=== PATIENT | male | born 1955 | race Caucasian/White ===

== ENCOUNTER 2021-06-04 10:11 | Day surgery (SDC) | payer MEDICARE ==
[2021-06-04] MEDS ORDERED: Lidocaine 1% PF 5 ML VIAL ONE (10:45)
[2021-06-04] MEDS ORDERED: Albumin 25% 100 ML ONE ×2 (10:45→10:58)
[2021-06-04 10:52] VITALS: TEMP 98.4
[2021-06-04 11:48] LABS: #Eosinphils 0.1 10x3/uL (0.0-0.5); #Monocytes 0.5 10x3/uL (0.0-1.1); #Neutrophils 4.4 10x3/uL (1.5-8.4); %Basophils 0.4 % (0.0-2.0); %Lymphocytes 30.7 % (18.0-47.0); %Monocytes 7.3 % (0.0-10.0); %Neutrophils 60.3 % (40.0-75.0); Hemoglobin 9.7 g/dL (13.5-17.5); Mean Corpuscular HGB CONC 34.5 g/dL (32.0-36.0); Mean Corpuscular Hemoglobin 32.1 pg (27.0-33.0); Mean Platelet Volume 12.5 fl (7.4-10.4); Platelet Count 138 10x3/uL (150-450); RBC Distribution Width 16.1 % (11.5-14.5); Red Blood Cell (RBC) Count 3.02 10x6/uL (4.32-5.72); White Blood Cell (WBC) Count 7.3 10x3/uL (3.5-10.5)
[2021-06-04 11:52] LABS: INR-International Normal Ratio 1.2; PTT 26.8 sec (22.0-33.0); Prothrombin Time 13.4 sec (9.5-12.1)
[2021-06-04 12:04] LABS: ALT (SGPT) 19 U/L (8-55); AST (SGOT) 43 U/L (5-34); Albumin 3.7 g/dL (3.4-4.8); Alkaline Phosphatase 120 U/L (40-110); Anion Gap 15 mmol/L (10-20); BUN (Urea Nitrogen) 35 mg/dL (8.4-25.7); Calc. Creatinine Clearance 25 mL/min (70-130); Calcium 9.7 mg/dL (7.8-10.44); Carbon Dioxide 23 mmol/L (23-31); Chloride 96 mmol/L (98-107); Globulin 2.5 g/dL (2.4-3.5); Glucose 112 mg/dL (80-115); Potassium 4.9 mmol/L (3.5-5.1); Protein, Total 6.2 g/dL (5.8-8.1); Sodium 129 mmol/L (136-145)
[2021-06-04] MEDS ORDERED: Midazolam HCl 5 mg/5 ml Vial ONE (12:14)
[2021-06-04 12:28] VITALS: BP 109/65
== END 2021-06-04 13:02 | disposition short-term general hospital (02) ==
LOC: CSHULT 10:11
PROVIDERS: ATTEND Physician Assistant Medical
DX: K70.30 Alcoholic cirrhosis of liver without ascites (principal); R18.8 Other ascites; N18.4 Chronic kidney disease, stage 4 (severe); K72.90 Hepatic failure, unspecified without coma; K76.6 Portal hypertension; S30.1XXA Contusion of abdominal wall, initial encounter; R57.0 Cardiogenic shock; R57.1 Hypovolemic shock; W19.XXXA Unspecified fall, initial encounter
CPT/HCPCS: 36430; 49083; 74177; 80053 ×2; 82550; 83605; 83690; 83735; 83880; 84484; 85025 ×2; 85610 ×2; 85730 ×2; 86850; 86900; 86901; 86920; 93005; 94760; P9016; P9045; P9047; 36415; 96365; 96375; 96376; 99292; J1170; J2060; J2250

== ENCOUNTER 2021-06-04 13:04 | Emergency (ER) | payer MEDICARE ==
[2021-06-04 16:37] LABS: INR-International Normal Ratio 1.7; PTT 32.5 sec (22.0-33.0); Prothrombin Time 18.3 sec (9.5-12.1)
[2021-06-04 16:46] LABS: Hemoglobin 4.4 g/dL (13.5-17.5); Mean Corpuscular HGB CONC 33.1 g/dL (32.0-36.0); Mean Corpuscular Hemoglobin 32.1 pg (27.0-33.0); Mean Corpuscular Volume 97.1 fl (81.2-95.1); Red Blood Cell (RBC) Count 1.37 10x6/uL (4.32-5.72)
[2021-06-04 16:47] LABS: #Monocytes 0.4 10x3/uL (0.0-1.1); #Neutrophils 5.1 10x3/uL (1.5-8.4); %Basophils 0.3 % (0.0-2.0); %Eosinophils 0.3 % (0.0-6.0); %Lymphocytes 21.3 % (18.0-47.0); %Neutrophils 71.7 % (40.0-75.0); Mean Platelet Volume 10.9 fl (7.4-10.4); Platelet Count 135 10x3/uL (150-450); RBC Distribution Width 16.5 % (11.5-14.5)
[2021-06-04 17:14] LABS: ALT (SGPT) 11 U/L (8-55); AST (SGOT) 24 U/L (5-34); Albumin 2.8 g/dL (3.4-4.8); Alkaline Phosphatase 64 U/L (40-110); Anion Gap 23 mmol/L (10-20); BUN (Urea Nitrogen) 36 mg/dL (8.4-25.7); Bilirubin, Total 1.6 mg/dL (0.2-1.2); CK (CPK) 31 U/L (30-200); Calc. Creatinine Clearance 0 mL/min (70-130); Calcium 8.1 mg/dL (7.8-10.44); Carbon Dioxide 10 mmol/L (23-31); Chloride 101 mmol/L (98-107); Globulin 1.2 g/dL (2.4-3.5); Glucose 188 mg/dL (80-115); Lipase 82 U/L (8-78); Magnesium 2.3 mg/dL (1.6-2.6); Potassium 4.6 mmol/L (3.5-5.1); Sodium 129 mmol/L (136-145)
[2021-06-04] MEDS ORDERED: Lorazepam 2 MG/ML VIAL ONE ×3 (17:18→18:12)
[2021-06-04] MEDS ORDERED: HYDROmorphone 0.5 MG/0.5 ML SYRINGE ONE ×4 (17:18→18:11)
== END 2021-06-04 18:39 | disposition expired ==
LOC: CSHERS 13:04
DX: S30.1XXA Contusion of abdominal wall, initial encounter (principal); K74.60 Unspecified cirrhosis of liver; R57.0 Cardiogenic shock; R57.1 Hypovolemic shock; W19.XXXA Unspecified fall, initial encounter
CPT/HCPCS: 36415; 36430; 74177; 82550; 83605; 83690; 83735; 83880; 84484; 86850; 86900; 86901; 93005; 94760; J1170; J2060; P9016; P9045